=== PATIENT | male | born 2000 | race Caucasian/White ===

== ENCOUNTER 2025-05-19 11:08 | Emergency (ER) | payer OTHER ==
[~2025-05-19] VITALS: Ht 182.8 cm; Wt 65.8 kg
[2025-05-19] MEDS ORDERED: DERMABOND 1 EA APPL T ONE (13:30)
[2025-05-19] MEDS ORDERED: CEPHALEXIN500 M1 PO (14:13)
== END 2025-05-19 15:49 | disposition home or self-care (01) ==
LOC: ED 11:08
DX: S01.111A Laceration without foreign body of right eyelid and periocular area, initial encounter (principal); M54.2 Cervicalgia; M54.9 Dorsalgia, unspecified; W18.39XA Other fall on same level, initial encounter; Y93.89 Activity, other specified; Y92.89 Other specified places as the place of occurrence of the external cause; Y99.8 Other external cause status